=== PATIENT | male | born 1955 | race Caucasian/White ===

== ENCOUNTER → 2024-08-23 09:29 | Outpatient (REF) | payer MEDICARE, OTHER, SELFPAY | LOC: SDSPAT 09:29 | PROVIDERS: ATTENDING PHYSICIAN Orthopaedic Surgery Orthopaedic Surgery of the Spine; FAMILY PHYSICIAN Internal Medicine | DX: M48.062 Spinal stenosis, lumbar region with neurogenic claudication (principal); M43.16 Spondylolisthesis, lumbar region | CPT/HCPCS: 36415; 87070; 93005 ==

== ENCOUNTER 2024-08-30 06:15 | Day surgery (SDC) | payer MEDICARE, OTHER, SELFPAY ==
[2024-08-23 10:01] VITALS: BMI 28.6
[2024-08-24 09:06] VITALS: BMI 28.6
[2024-08-30 09:23] VITALS: BP 158/77; BMI 28.6
== END 2024-08-30 09:43 | disposition home or self-care (01) ==
LOC: SDS 06:15
PROVIDERS: ATTENDING PHYSICIAN Orthopaedic Surgery Orthopaedic Surgery of the Spine; FAMILY PHYSICIAN Internal Medicine
DX: M48.062 Spinal stenosis, lumbar region with neurogenic claudication (principal); Z53.9 Procedure and treatment not carried out, unspecified reason
CPT/HCPCS: 22612; C1776